=== PATIENT | female | born 1975 | race African-American/Black ===

== ENCOUNTER 2025-01-25 09:47 | Emergency (ER) | payer BC ==
[~2025-01-25] VITALS: Ht 157.5 cm; Wt 57.0 kg
[2025-01-25 10:02] VITALS: BP 100/63; TEMP 36.9; O2SAT 100
[2025-01-25 10:07] VITALS: PULSE 98; RESP 18; O2SAT 99
== END 2025-01-25 11:40 | disposition home or self-care (01) ==
LOC: ER 10:14
DX: T75.4XXA Electrocution, initial encounter (principal); J45.909 Unspecified asthma, uncomplicated; M62.82 Rhabdomyolysis; Z88.0 Allergy status to penicillin; W86.8XXA Exposure to other electric current, initial encounter; Y93.89 Activity, other specified; Y92.89 Other specified places as the place of occurrence of the external cause; Y99.8 Other external cause status
CPT/HCPCS: 93005; 99283